=== PATIENT | female | born 1965 | race African-American/Black ===

== ENCOUNTER 2016-10-20 22:00 | Inpatient (IN) | payer OTHER, MEDICARE ==
[~2016-10-20] VITALS: Ht 172.7 cm; Wt 102.0 kg
[~2016-10-20 22:00] MED LIST: GRAL600T; HYDR-3535 PO; INSU100V2 SQ; METF500T PO; NOVOLOGSS; SERO300T PO; SOMA350T PO
[2016-10-20 22:03] VITALS: BP 132/69; PULSE 120; RESP 22; TEMP 99.1; O2SAT 96
--- NOTE | 2016-10-20 22:37 | PD ---
Physical Exam Time Seen by Provider: 22:34 Narrative 51yo F c/o bladder sling came loose. Was seen at [facility] last night and was told she needed surgery and was discharged home. Taking Cipro 500mg and Pyridium. =Vomiting. Tha fever. +chills. + abd pain. Patient seen in triage. VS reviewed. Patient taken to med bed for evaluation. Data Data Last Documented VS Vital Signs Date Time Temp Pulse Resp B/P Pulse Ox O2 Delivery O2 Flow Rate FiO2 10/20/16 22:03 99.1 120 22 132/69 96 Room Air MDM Supervised Visit with BLAYNE: Samantha Rodriges Oct 20, 2016 22:37
[2016-10-20] MEDS ORDERED: SODIUM CHLOR 0.9% 1000 ML INJ 1,000 ML IV ONE ×3 (22:45)
[2016-10-20] MEDS ORDERED: VANCOMYCIN INJ 1,000 MG in SODIUM CHLOR 0.9% 250 ML INJ 250 ML IV ONE (22:45)
[2016-10-20] MEDS ORDERED: PIPERACIL-TAZO 3.375 GM PREMIX 50 ML IV ONE (22:45)
[2016-10-20 23:11] VITALS: BP 127/59; RESP 20; O2SAT 98
--- NOTE | 2016-10-20 23:16 | PD ---
HPI Chief Complaint: Complaint Time Seen by Provider: 22:45 Travel History International Travel<30 days: No Contact w/Intl Traveler<30days: No Traveled to known affect area: No History of Present Illness HPI The patient is a 51 year old female who presents to the [facility] emergency department with a history of having increased pain in the vaginal area and pelvic area associated with blood in her urine, and persistent urinary incontinence for the last month. She went [facility] last night, and they reportedly tried to cut and a catheter however it was unable to be passed due to inflammation. She is followed by Dr. Martin for her urologic care. She reports that she's had a long-standing problem with difficulty urinating and has had 4 surgical procedures done to her bladder. She recently saw Dr. Martin and he scheduled an MRI of the pelvis which was done earlier today. She has not heard about the results. She has been on Cipro and antifungals intermittently for the last 3-4 months. She has self induced vomiting 10 x per day. She reports that she has been dx as bulimic and been doing this for the last 10 years. For the last 3 years, she reports having diarrhea 20-30 minutes after eating. The patient reports that she does have a history of psychiatric problems. She reports that she is on Seroquel. She reports that she has not seen a psychiatrist in a long time. She has an appointment scheduled with Dr. Chadwick this next week. The patient reports having a subjective fever. On review systems, the patient denies having any cough, congestion, neck pain, chest pain, shortness of breath, or neurologic symptoms. Dr. Strong is her PCP. Dr. Chadwick- psychiatry: she is on Seroquel. [facility] Past Medical History Narrative Medical The patient's past surgical history is significant for psychiatric disorder, chronic abdominal pain, chronic recurrent urinary tract infections, acid reflux , chest pain, anemia, reported bulimia, chronic diarrhea. Anemia: Yes Arthritis: No Asthma: No Autoimmune Disease: No Blood Disorders: No Bipolar Disorder: Yes Anxiety: Yes Depression: Yes Cancer: No Cardiovascular Problems: No High Cholesterol: No Chest Pain: Yes COPD: No Coronary Artery Disease: Yes Diabetes: Yes Patient Takes Glucophage: Yes Diminished Hearing: No Endocrine: No Gastrointestinal Disorders: No GERD: Yes Genitourinary: Yes (freq uti) Headaches: Yes ("FROM HITTING MY HEAD" SHE SAYS) Hepatitis: No Hiatal Hernia: No Hypertension: No Immune Disorder: No Musculoskeletal: Yes Neurologic: Yes Psychiatric: Yes Reproductive: No Respiratory: No Integumentary: Yes (CELLULITIS) Immunizations Current: No Schizophrenia: Yes Sleep Apnea: No Thyroid Disease: No Ulcer: No Tetanus Vaccination: > 5 Years Influenza Vaccination: Yes ?: Not Menopausal: Yes : 2 Para: 2 Miscarriage: 0 : 0 Ovarian Cysts: Yes Tubal Ligation: Yes Past Surgical History Narrative Surgical The patient's past surgical history is significant for bladder sling procedure x4. The last two procedures were done by Dr. Martin. The patient has also had back surgery, right foot surgery, right hand surgery. Abdominal Surgery: Yes AICD: No Appendectomy: No Arteriovenous Shunt: No Body Medical Devices: BLADDER SLING Cardiac Surgery: No Section: Yes Cholecystectomy: Yes (2006) Ear Surgery: No Endocrine Surgery: No Eye Surgery: No Genitourinary Surgery: Yes (BLADDER SLING) Gynecologic Surgery: Yes Insulin Pump: No Joint Replacement: No Neurologic Surgery: No Oral Surgery: No Pacemaker: No Thoracic Surgery: No Other Surgery: Yes (back lumbar, bladder tac,r foot and r hand finger surgery) Social History Alcohol Use: No Tobacco Use: No Substance Use: No Allergies-Medications (Allergen,Severity, Reaction): Coded Allergies: Percocet (Verified Allergy, Severe, ITCHING, 10/20/16) *MDRO Multi-Drug Resistant Organism (Verified Adverse Reaction, Unknown, Cleared, 10/21/16) MRSA in wounds 2004, 2005, 2010. Cleared - MRSA screen negative - 03/12/15 & 10/21/16 Reported Meds & Prescriptions Reported Meds & Active Scripts Active Reported Soma (Carisoprodol) 350 Mg Tab 350 Mg PO QID PRN Seroquel (Quetiapine Fumarate) 300 Mg Tab 600 Mg PO DAILY Novolog Inj (Insulin Aspart) 100 Unit/Ml Inj Metformin (Metformin HCl) 500 Mg Tab 500 Mg PO DAILY With a meal Lortab (Hydrocodone-Acetaminophen) 10-325 Mg Tab 1 Tab PO Q6H PRN Humulin R Inj (Insulin Human Regular) 1,000 Unit/10 Ml Vial 1 Units SQ ONCE Gralise (Gabapentin (Once-Daily)) 600 Mg Tab Review of Systems Except as stated in HPI: all other systems reviewed are Neg General / Constitutional: No: Fever Eyes: No: Visual changes HENT: No: Headaches Cardiovascular: No: Chest Pain or Discomfort Respiratory: No: Shortness of Breath Gastrointestinal: Positive: Nausea, Vomiting, Diarrhea, Abdominal Pain, Changes in Bowel Habits Genitourinary: Positive: Urgency, Frequency, Dysuria, Incontinence, Pelvic Pain Musculoskeletal: No: Pain Skin: No Rash Neurologic: Positive: Weakness (generalized weakness), No: Focal Abnormalities , Change in Mentation, Slurred Speech, Sensory Disturbance Psychiatric: No: Depression Endocrine: No: Polydipsia Hematologic/Lymphatic: No: Easy Bruising Physical Exam Narrative General: The patient is a well-developed well-nourished female who arrives uncomfortable appearing on examination, holding her lower abdomen. Head and Neck exam: Head is normocephalic atraumatic. Eyes: EOMI, pupils are equal round and reactive to light. Nose: Midline septum with pink mucous membranes Mouth: Dentition unremarkable. Moist mucus membranes. Posterior oropharynx is not erythematous. No tonsillar hypertrophy. Uvula midline. Airway patent. Neck: No palpable lymphadenopathy. No nuchal rigidity. No thyromegaly. Cardiovascular: Regular rate and rhythm without murmurs, gallops, or rubs. No pulse deficit to the extremities. Lungs: Clear to auscultation bilaterally. No wheezes, rhonchi, or rales. Abdomen: Soft, with tenderness on palpation over the suprapubic area and bilateral lower quadrants of the abdomen, no other tenderness on palpation in the upper quadrants of the abdomen. No guarding, rebound, or rigidity. Normal bowel sounds are audible. No tenderness on palpation specifically over McBurney's point. Negative Holloway sign. Extremities: No clubbing, cyanosis, or edema. 2+ pulses in all 4 extremities. No calf tenderness on palpation. Back: No spinous process tenderness to palpation. No costovertebral angle tenderness to palpation. Neurologic Exam: Grossly nonfocal. Skin Exam: No rash noted. Intact skin that is warm and dry. The patient's external genitalia were examined while the Reza catheter was placed to gravity and there is no evidence of inflammation, erythema, or external tenderness on palpation. Data Data Last Documented VS Vital Signs Date Time Temp Pulse Resp B/P Pulse Ox O2 Delivery O2 Flow Rate FiO2 10/20/16 23:11 20 127/59 98 10/20/16 22:03 99.1 120 Room Air Orders Electrocardiogram (10/20/16 22:45) Complete Blood Count With Diff (10/20/16 22:45) Comprehensive Metabolic Panel (10/20/16 22:45) Prothrombin Time / Inr (Pt) (10/20/16 22:45) Act Partial Throm Time (Ptt) (10/20/16 22:45) Blood Culture (10/20/16 22:45) Lipase (10/20/16 22:45) Urinalysis - C+S If Indicated (10/20/16 22:45) Chest, Single Ap (10/20/16 22:45) Iv Access Insert/Monitor (10/20/16 22:45) Ecg Monitoring (10/20/16 22:45) Oximetry (10/20/16 22:45) Lactic Acid Sepsis Protocol (10/20/16 22:45) Sodium Chlor 0.9% 1000 Ml Inj (Ns 1000 M (10/20/16 22:45) Sodium Chlor 0.9% 1000 Ml Inj (Ns 1000 M (10/20/16 22:45) Sodium Chlor 0.9% 1000 Ml Inj (Ns 1000 M (10/20/16 22:45) Piperacil-Tazo 3.375 Gm Premix (Zosyn 3. (10/20/16 22:45) Vancomycin Inj (Vancomycin Inj) (10/20/16 22:45) Prochlorperazine Inj (Compazine Inj) (10/20/16 23:30) Ketorolac Inj (Toradol Inj) (10/20/16 23:30) Urinary Catheter Insert/Apply (10/21/16 00:36) Admit Order (Ed Use Only) (10/21/16 01:16) Labs Laboratory Tests Test 10/20/16 10/20/16 23:00 23:59 Sodium Level 140 MEQ/L Potassium Level 5.0 MEQ/L Chloride Level 108 MEQ/L Carbon Dioxide Level 23.3 MEQ/L Anion Gap 9 MEQ/L Blood Urea Nitrogen 13 MG/DL Creatinine 1.14 MG/DL Estimat Glomerular Filtration 61 ML/MIN Rate Random Glucose 288 MG/DL Calcium Level 7.5 MG/DL Total Bilirubin 0.3 MG/DL Aspartate Amino Transf 39 U/L (AST/SGOT) Alanine Aminotransferase 25 U/L (ALT/SGPT) Alkaline Phosphatase 96 U/L Total Protein 8.2 GM/DL Albumin 2.9 GM/DL Lipase 315 U/L White Blood Count 7.4 TH/MM3 Red Blood Count 3.70 MIL/MM3 Hemoglobin 11.0 GM/DL Hematocrit 33.2 % Mean Corpuscular Volume 89.8 FL Mean Corpuscular Hemoglobin 29.7 PG Mean Corpuscular Hemoglobin 33.1 % Concent Red Cell Distribution Width 13.2 % Platelet Count 241 TH/MM3 Mean Platelet Volume 8.5 FL Neutrophils (%) (Auto) 48.1 % Lymphocytes (%) (Auto) 44.2 % Monocytes (%) (Auto) 6.0 % Eosinophils (%) (Auto) 1.2 % Basophils (%) (Auto) 0.5 % Neutrophils # (Auto) 3.5 TH/MM3 Lymphocytes # (Auto) 3.3 TH/MM3 Monocytes # (Auto) 0.4 TH/MM3 Eosinophils # (Auto) 0.1 TH/MM3 Basophils # (Auto) 0.0 TH/MM3 CBC Comment DIFF FINAL Differential Comment Prothrombin Time 10.0 SEC Prothromb Time International 0.9 RATIO Ratio Activated Partial 25.5 SEC Thromboplast Time Lactic Acid Level 1.2 mmol/L MDM Medical Decision Making Medical Screen Exam Complete: Yes Emergency Medical Condition: Yes Medical Record Reviewed: Yes Interpretation(s) Last Impressions Renal Ultrasound 10/21/16 0000 Signed Impressions: Service Date/Time: Friday, October 21, 2016 10:36 - CONCLUSION: Unremarkable sonographic appearance of the kidneys Miguel A Brown MD Pelvis CT 10/21/16 0000 Signed Impressions: Service Date/Time: Friday, October 21, 2016 18:31 - CONCLUSION: Reza catheter decompressing the bladder. The bladder appears normally positioned. There is increased density seen in the bladder lumen which raises the possibility of hemorrhage within the lumen. Miguel A Romero MD Chest X-Ray 10/20/16 2245 Signed Impressions: Service Date/Time: Thursday, October 20, 2016 23:28 - CONCLUSION: Bilateral lower lung infiltrates with some consolidation in the right infrahilar region. Sulaiman Tobar MD Differential Diagnosis Vaginitis, versus urethritis, versus urinary tract infection, versus urinary retention, versus psychosomatic symptoms, versus kidney stone Narrative Course During the course of the patients emergency department visit, the patients history, examination, and differential diagnosis were reviewed with the patient. The patient had IV access obtained and blood work sent for analysis. The patient states on a telemetry monitor with oximetry and blood pressure monitoring. The patient was tachycardic on arrival and reported being diagnosed with a urinary tract infection, already on antibiotic, therefore a sepsis workup was started. The patient was initially provided normal saline at 30 mL per KG IV fluid bolus was started. The patient was given Zosyn and Vancomycin for broad-spectrum antibiotic coverage. The patient was given Toradol 15 mg IV for pain, Compazine 5 mg IV for nausea. The patients laboratory studies were reviewed and remarkable for bilateral lung infiltrates with infiltrates worse in the right side. Given the patient's induced vomiting approximately 10 times per day by her report there is a concern for aspiration. Radiology studies were reviewed that were done as an outpatient earlier today and an MRI of the pelvis with and without contrast was ordered by the patient's urologist, Dr. Cano. This showed a marked circumferential irregular bladder wall thickening, a bladder malignancy have this appearance versus a trabeculated neurogenic appearing urinary bladder. The patient had a Reza catheter placed to gravity and the patient was identified as having urinary retention. The patients results were discussed with the patient, including the plan of care. I explained that further testing and/ or monitoring is indicated based on the patients history, examination, and/ or laboratory findings. Therefore, I recommended admission for additional evaluation. The patient expressed understanding and was agreeable with this plan. The patient was admitted to the hospital in stable condition and [facility] Physician Communication Physician Communication The patient's case was discussed with Dr. Flores who did agree to admit the patient for further evaluation and treatment at this time. Diagnosis Primary Impression: Intractable abdominal pain Additional Impression: Bilateral pulmonary infiltrates on chest x-ray Admitting Information Admitting Physician Requests: it Martha Harrell MD Oct 20, 2016 23:16
[2016-10-20] MEDS ORDERED: PROCHLORPERAZINE INJ 10 MG/2 ML VIAL IV PUSH ONE (23:30)
[2016-10-20] MEDS ORDERED: KETOROLAC TROMETHAMINE 30 MG/ML (IVP) VIAL IV PUSH ONE (23:30)
--- NOTE | 2016-10-20 23:40 | RADRPT ---
EXAM DATE/TIME: 10/20/2016 23:28 [facility] COMPARISON: CT ABDOMEN & PELVIS W/O CONTRAST, March 13, 2015, 17:47. CHEST SINGLE AP, March 13, 2015, 3:09 . INDICATIONS : Chest and abdominal pain. MEDICAL HISTORY : Hypertension. SURGICAL HISTORY : None. ENCOUNTER: Initial ACUITY: 1 day PAIN SCORE: 10/10 LOCATION: Bilateral lower chest FINDINGS: There is a partially consolidated infiltrate on the right side in the infrahilar region. Some patchy non-consolidative infiltrates are seen the medial left lower lung. Both hemidiaphragms are well del ineated. The heart is normal size. The upper lungs are clear. CONCLUSION: Bilateral lower lung infiltrates with some consolidation in the right infrahilar region. Sulaiman Tobar MD on October 20, 2016 at 23:37 Board Certified Radiologist. This report was verified electronically.
[2016-10-20 23:44] LABS: ALKALINE PHOSPHATASE 96 U/L (45-117); TOTAL BILIRUBIN ADULT 0.3 MG/DL (0.2-1.0)
[2016-10-20 23:45] LABS: ALT (GPT) 25 U/L (10-53); ANION GAP 9 MEQ/L (5-15); AST (GOT) 39 U/L (15-37); BICARBONATE 23.3 MEQ/L (21.0-32.0); CHLORIDE 108 MEQ/L (98-107); GLOMERULAR FILTRATION RATE 61 ML/MIN (>89); SODIUM (NA) 140 MEQ/L (136-145)
[2016-10-20 23:48] LABS: BLOOD UREA NITROGEN 13 MG/DL (7-18)
[2016-10-21] VITALS (8 sets, daily range): BP systolic 120–176; BP diastolic 60–93; PULSE 88–97; RESP 16–20; TEMP 96.9–99.4; O2SAT 94–99
[2016-10-21 00:45] LABS: AUTOMATED NEUTROPHIL # 3.5 TH/MM3 (1.8-7.7); BASOPHIL % 0.5 % (0.0-2.0); EOSINOPHIL # 0.1 TH/MM3 (0-0.4); EOSINOPHIL % 1.2 % (0.0-4.0); HEMATOCRIT 33.2 % (35.0-46.0); HEMO FLAGS DIFF FINAL; LYMPH % 44.2 % (9.0-44.0); LYMPHOCYTE # 3.3 TH/MM3 (1.0-4.8); MEAN CELL VOLUME 89.8 FL (80.0-100.0); MEAN CORPUSCULAR HEMOGLOBIN 29.7 PG (27.0-34.0); MEAN CORPUSCULAR HGB CONC 33.1 % (32.0-36.0); NEUT % 48.1 % (16.0-70.0); PLATELET COUNT 241 TH/MM3 (150-450); RED CELL DISTRIBUTION WIDTH 13.2 % (11.6-17.2); WHITE BLOOD COUNT 7.4 TH/MM3 (4.0-11.0)
[2016-10-21 00:52] LABS: APTT (PATIENT) 25.5 SEC (24.3-30.1); INTERNATIONAL NORMALIZED RATIO 0.9 RATIO
[2016-10-21] MEDS ORDERED: NALOXONE HCL 0.4 MG/ML AMP IV PRN (01:45)
[2016-10-21 02:28] LABS: BACTERIA, URINE RARE /hpf; BLOOD, URINE MOD (NEG); GLUCOSE,URINE 70 mg/dL (NEG); KETONE, URINE NEG (NEG); MUCUS URINE FEW /lpf (OCC); NITRITE,URINE POS (NEG); RENAL EPITHELIAL CELLS 4 /hpf; SQUAMOUS EPITHELIAL CELL URINE 2 /hpf (0-5); URINE COLOR DARK-BROWN (YELLW/STRAW)
[2016-10-21 02:29] LABS: COMMENT (UR) CATH-CULTURE IND; CULTURE IF INDICATED CATH CULTURE IND
[2016-10-21] MEDS: SODIUM CHLORIDE 0.9% FLUSH 10 ML FLUSH IV FLUSH SCH ×2 (08:22→20:18)
[2016-10-21] MEDS: SODIUM CHLORIDE 0.9% FLUSH 10 ML FLUSH IV FLUSH PRN ×2 (08:23→11:13)
[2016-10-21] MEDS ORDERED: DEXTROSE 50% IN WATER 50 ML VIAL(D50) IV PUSH PRN (10:15)
[2016-10-21] MEDS ORDERED: GLUCAGON 1 MG/ML VIAL OTHER PRN (10:15)
[2016-10-21] MEDS ORDERED: KETOROLAC TROMETHAMINE 30 MG/ML (IVP) VIAL IV PUSH ONE (10:15)
[2016-10-21] MEDS ORDERED: DIATRIZOATE MEGLUM/DIATRIZOATE SOD 9 ML CUP PO ONE (10:53)
--- NOTE | 2016-10-21 11:04 | RADRPT ---
EXAM DATE/TIME: 10/21/2016 10:36 [facility] COMPARISON: No previous studies available for comparison. INDICATIONS : Hydronephrosis. MEDICAL HISTORY : CAD. GERD. SURGICAL HISTORY : Cholecystectomy. Tubal ligation. section. ENCOUNTER: Initial ACUITY: 2 days PAIN SCORE: 10/10 LOCATION: Bilateral flank MEASUREMENTS: RIGHT KIDNEY: 13.0 x 5.2 x 6.7 cm LEFT KIDNEY: 12.3 x 5.4 x 7.0 cm FINDINGS: RIGHT KIDNEY: Renal cortex is normal in thickness and echotexture. No hydronephrosis, stone, or mass. LEFT KIDNEY: Renal cortex is normal in thickness and echotexture. No hydronephrosis, stone, or mass. BLADDER: Decompressed with Reza catheter CONCLUSION: Unremarkable sonographic appearance of the kidneys Miguel A Brown MD on October 21, 2016 at 10:58 Board Certified Radiologist. This report was verified electronically.
[2016-10-21] MEDS: PIPERACIL-TAZO 3.375 GM PREMIX 50 ML IV SCH ×3 (11:33→23:20)
[2016-10-21] MEDS: SODIUM CHLOR 0.9% 1000 ML INJ 1,000 ML IV SCH ×2 (11:34→20:18)
[2016-10-21] MEDS: INSULIN ASPART SUPPLEMENTAL SCALE SQ SCH ×3 (12:59→21:47)
[2016-10-21] MEDS ORDERED: BELLADONNA ALKALOIDS/OPIUM 60 MG SUPP RECTAL ONE (17:00)
--- NOTE | 2016-10-21 17:20 | EKG ---
Date Performed: 10/21/2016 Time Performed: 00:25:20 PTAGE: 51 years EKG: Sinus rhythm LOW QRS VOLTAGE IN PRECORDIAL LEADS BORDERLINE ECG PREVIOUS TRACING 03/12/15 @ 12.04.06 Compared to prior tracing no significant change DOCTOR: Jas Humphrey Interpretating Date/Time 10/21/2016 17:18:53
[2016-10-21] MEDS: KETOROLAC TROMETHAMINE 30 MG/ML (IVP) VIAL IV PUSH PRN ×2 (18:15→23:57)
--- NOTE | 2016-10-21 18:35 | MB ---
cc: MANDI CAMPBELL MD DATE OF CONSULTATION 10/21/2016 REASONS FOR CONSULTATION 1. Urinary retention. 2. Pelvic pain. 3. History of stress urinary incontinence status post mid urethral sling. 4. h/o bladder diverticulectomy HISTORY OF THE PRESENT ILLNESS The patient is a 51-year-old -[place] female with a long-standing history of stress urinary incontinence who has had multiple surgeries in the past on her bladder, most recently with Dr. Cano, presented to the ER last night with pain in her pelvic area extending to her vagina as well as her lower abdomen, blood in her urine and persistent leakage of urine. She went to [facility] on Thursday night for similar symptoms. At that time they attempted to place a catheter but were unable to past due to significant swelling, inflammation her vaginal area. She was then sent home from hospital and due to worsening pain she then came to [place] ER for further evaluation. She has had multiple bladder surgeries in the past, including a Bladder Diverticulectomy by Dr Cuellar and then most recently a MUS by Dr. Cano. However, she continues to leak urine uponstanding and not being able to make it to the bathroom in time. She has been onmultiple courses of antibiotics for the last 3 or 4 months none of which have helped. She also was tried Vesicare and oxybutynin in the past which have not helped with her incontinence as well. She denies fevers, chills or flank pain at this time. She does have history of bulimia and she self-induces vomiting approximately 10 times per day. She denies a history of kidney stones. REVIEW OF SYSTEMS See history of present illness. Otherwise a 14 point review of systems is otherwise negative. PAST MEDICAL HISTORY Significant for: 1. Stress urinary incontinence. 2. History of urinary tract infections. 3. Bulimia. 4. Bladder Diverticulum. PAST SURGICAL HISTORY 1. Bladder sling x2. 2. Cholecystectomy. 3. Bladder Diverticulectomy FAMILY HISTORY She denies urolithiasis or genitourinary malignancies. MEDICATIONS Include: 1. Seroquel 600 milligrams p.o. daily. 2. Soma 350 milligrams p.o. four times daily as needed constipation. 3. Metformin 500 milligrams p.o. daily. 4. Insulin. 5. Gabapentin 600 milligrams tab p.o. three times a day. SOCIAL HISTORY Is positive for caffeine, history of overdose in the past. Denies smoking or alcohol use. PHYSICAL EXAMINATION VITAL SIGNS: Her temperature 96.9, pulse 96, respiratory rate 16, blood pressure 120/60. GENERAL: She is alert and oriented times three. Appears to be in mild distress but is pleasant and cooperative. HEAD AND NECK: Head is normocephalic, atraumatic. Neck is supple. Trachea is midline. No JVD. Eyes, no scleral icterus. Extraocular muscles intact. SKIN: No ulcers or rashes. Mucous membranes pink and moist. LUNGS: Clear to auscultation bilaterally. No wheezes, rales, rhonchi. HEART: Regular rate and rhythm. No murmurs, gallops, rubs. ABDOMEN: Obese, but soft, nontender, nondistended. Positive bowel sounds. GENITOURINARY: No CVA tenderness bilaterally. PELVIC: Examination deferred at this time. EXTREMITIES: Nontender. No clubbing, cyanosis or edema. PSYCHIATRIC: She appears to be anxious and upset. Slightly histrionic. NEUROLOGIC: Cranial nerves II through XII intact. Strength 5/5 in all four extremities. Reza catheter draining clear, yellow urine with what appears to be red, stringy clots. LABORATORY DATA White count 7.4, hemoglobin 11.0, hematocrit 33.2, platelet count 241. Chemistry sodium 140, potassium 5.1, chloride 105, bicarb 23.3, creatinine 1.14, BUN 13, glucose 288. Her urine was positive for nitrates, moderate leukocyte esterase, large moderate blood clotting in nature. Urine culture is currently pending. IMAGING STUDIES Renal ultrasound images reviewed. I agree with the radiologist's report. No renal masses, hydronephrosis or stones. ASSESSMENT The patient is a 51-year-old female with a history of bladder diverticulectomy by Dr. Cuellar, stress urinary incontinence status MUS, subsequently with Dr. Cano admitted with pelvic pain extending to the vagina area as well as urinary retention and blood in the urine. PLAN Recommend continuing Reza catheter and discharge her home with catheter in place. She can then follow up with Dr. Martin for further outpatient evaluation. Recommend continuing antibiotics until urine culture is final. Also recommended that she be referred for AUTOMOTIVE TECHNICIAN evaluation as she has not seen an VEHICLE AND EQUIPMENT CLEANER in her lifetime per the patient as she could also be having significant vaginal issues as well. Thank you for this consultation. Please call with any questions. MD JORGITO Barbosa/LAURIE /1:00 PM /6:06 PM AMY
[2016-10-21] MEDS ORDERED: IOHEXOL 350 MG/ML 10 ML VIAL (for RAD DIAG) IV ONE (18:40)
--- NOTE | 2016-10-21 19:24 | RADRPT ---
EXAM DATE/TIME: 10/21/2016 18:31 [facility] COMPARISON: No previous studies available for comparison. INDICATIONS : Abdominal pain, evaluate bladder sling. IV CONTRAST: 92 cc Omnipaque 350 (iohexol) IV ORAL CONTRAST: Prescribed oral contrast ingested. RADIATION DOSE: 15.39 CTDIvol (mGy) MEDICAL HISTORY : None SURGICAL HISTORY : Cholecystectomy. Tubal ligation. section. Bladder sling surgery. ENCOUNTER: Initial ACUITY: 1 week PAIN SCALE: 3/10 LOCATION: Bilateral lower quadrant TECHNIQUE: Volumetric scanning of the pelvis was performed. Using automated exposure control and adjustment of the mA and/or kV according to patient size, radiation dose was kept as low as reasonabl y achievable to obtain optimal diagnostic quality images. DICOM format image data is available elec tronically for review and comparison. FINDINGS: The patient has a Reza catheter in the bladder. There is increased density within the bladder which may represent some degree of hemorrhage within the bladder. The bladder appears sarah lly positioned. The uterus and ovaries are unremarkable for a standard CT examination. There are scattered colonic d iverticula without inflammatory change seen. Free fluid is not seen in the peritoneal cavity. There is degenerative change in the lower lumbar spine. CONCLUSION: Reza catheter decompressing the bladder. The bladder appears normally positioned. Th ere is increased density seen in the bladder lumen which raises the possibility of hemorrhage within the lumen. Miguel A Romero MD on October 21, 2016 at 19:08 Board Certified Radiologist. This report was verified electronically.
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
[2016-10-22] VITALS: BP 137/67; PULSE 86; RESP 18; TEMP 98.6; O2SAT 98
[2016-10-22 04:00] VITALS: BP 127/72; PULSE 86; RESP 18; TEMP 97.7; O2SAT 97
[2016-10-22] MEDS: SODIUM CHLOR 0.9% 1000 ML INJ 1,000 ML IV SCH ×2 (05:29→11:03)
[2016-10-22] MEDS: PIPERACIL-TAZO 3.375 GM PREMIX 50 ML IV SCH ×2 (05:29→10:13)
[2016-10-22] MEDS: KETOROLAC TROMETHAMINE 30 MG/ML (IVP) VIAL IV PUSH PRN (06:00)
[2016-10-22] MEDS: INSULIN ASPART SUPPLEMENTAL SCALE SQ SCH ×2 (06:01→12:00)
[2016-10-22 07:16] LABS: AUTOMATED NEUTROPHIL # 1.6 TH/MM3 (1.8-7.7); BASOPHIL % 0.6 % (0.0-2.0); EOSINOPHIL # 0.2 TH/MM3 (0-0.4); EOSINOPHIL % 3.2 % (0.0-4.0); LYMPH % 60.1 % (9.0-44.0); LYMPHOCYTE # 3.4 TH/MM3 (1.0-4.8); MEAN CELL VOLUME 89.9 FL (80.0-100.0); MEAN CORPUSCULAR HEMOGLOBIN 28.9 PG (27.0-34.0); MEAN CORPUSCULAR HGB CONC 32.2 % (32.0-36.0); MONO % 7.3 % (0.0-8.0); NEUT % 28.8 % (16.0-70.0); PLATELET COUNT 186 TH/MM3 (150-450); RED BLOOD COUNT 3.34 MIL/MM3 (4.00-5.30); RED CELL DISTRIBUTION WIDTH 13.7 % (11.6-17.2); WHITE BLOOD COUNT 5.6 TH/MM3 (4.0-11.0)
[2016-10-22 07:23] LABS: HEMO FLAGS AUTO DIFF
[2016-10-22 07:49] LABS: BICARBONATE 27.6 MEQ/L (21.0-32.0); POTASSIUM 3.8 MEQ/L (3.5-5.1)
[2016-10-22 08:15] LABS: PLATELET ESTIMATE SMEAR NORMAL (NORMAL); PLATELET MORPHOLOGY NORMAL (NORMAL); SCAN/DIFF AUTO DIFF CONFIRMED
[2016-10-22 08:46] VITALS: BP 140/85; PULSE 84; RESP 16; TEMP 97.4; O2SAT 98
[2016-10-22] MEDS ORDERED: SENNOSIDES 8.6 MG TAB PO SCH (09:45)
[2016-10-22] MEDS ORDERED: GABAPENTIN 300 MG CAP PO SCH (09:45)
[2016-10-22] MEDS ORDERED: ACETAMINOPHEN/HYDROcodone 325 MG/5 MG TAB PO PRN (09:45)
[2016-10-22] MEDS ORDERED: DOCUSATE SODIUM 100 MG CAP PO SCH (09:45)
[2016-10-22] MEDS ORDERED: QUEtiapine FUMARATE 300 MG TAB PO SCH ×2 (09:45→21:00)
[2016-10-22] MEDS ORDERED: ACETAMINOPHEN/HYDROcodone 325 MG/10 MG TAB PO PRN (09:45)
[2016-10-22] MEDS ORDERED: MORPHINE SULFATE 4 MG/ML INJ IV PUSH PRN (09:45)
[2016-10-22] MEDS ORDERED: CIPR-9 PO ×2 (09:49→11:02)
[2016-10-22] MEDS ORDERED: PHEN0.4T PO (09:51)
--- NOTE | 2016-10-22 11:04 | HHI.DCPOC ---
Discharge Care Plan Diagnosis: (1) Mixed incontinence (2) Psychogenic vomiting (3) UTI (urinary tract infection) (4) Chronic pain (5) Diabetes mellitus type 2 (6) Intractable abdominal pain (7) Urinary retention Goals to Promote Your Health * To prevent worsening of your condition and complications * To maintain your health at the optimal level Directions to Meet Your Goals Take your medications as prescribed Follow your dietary instruction Follow activity as directed Keep your appointments as scheduled Take your immunizations and boosters as scheduled If your symptoms worsen call your PCP, if no PCP go to Urgent Care Center or Emergency Room Smoking is Dangerous to Your Health. Avoid second hand smoke Call the 24-hour hour crisis hotline for domestic abuse at Scottie Gutiérrez DO Oct 22, 2016 11:04
--- NOTE | 2016-10-22 11:15 | HHI.PR ---
Subjective Remarks The patient was complaining of significant pain. She said that she was getting the same pills she takes at home. She said that her urologist called her and wanted her to come in for surgery. The patient wanted to go home today so she could go to the surgery Center tomorrow morning for surgical repair. Discussed with nursing. Objective Vitals Vital Signs Date Time Temp Pulse Resp B/P Pulse Ox O2 Delivery O2 Flow Rate FiO2 10/22/16 08:46 97.4 84 16 140/85 98 10/22/16 04:00 97.7 86 18 127/72 97 10/22/16 00:00 98.6 86 18 137/67 98 10/21/16 20:32 88 10/21/16 20:15 97.3 95 20 176/80 99 10/21/16 16:45 99.4 93 16 154/93 96 10/21/16 12:00 98.4 97 16 162/92 95 I/O 10/21/16 10/21/16 10/21/16 10/22/16 10/22/16 10/22/16 07:00 15:00 23:00 07:00 15:00 23:00 Intake Total 740 ml 1280 ml 425 ml Output Total 1100 ml 1600 ml 200 ml Balance -360 ml -320 ml 225 ml Intake Oral 740 ml 480 ml IV Total 800 ml 425 ml Output Urine Total 1100 ml 1600 ml 200 ml Result Diagram: 10/22/16 0626 10/22/16 0626 Imaging Last Impressions Renal Ultrasound 10/21/16 0000 Signed Impressions: Service Date/Time: Friday, October 21, 2016 10:36 - CONCLUSION: Unremarkable sonographic appearance of the kidneys Miguel A Brown MD Pelvis CT 10/21/16 0000 Signed Impressions: Service Date/Time: Friday, October 21, 2016 18:31 - CONCLUSION: Reza catheter decompressing the bladder. The bladder appears normally positioned. There is increased density seen in the bladder lumen which raises the possibility of hemorrhage within the lumen. Miguel A Romero MD Chest X-Ray 10/20/16 2245 Signed Impressions: Service Date/Time: Thursday, October 20, 2016 23:28 - CONCLUSION: Bilateral lower lung infiltrates with some consolidation in the right infrahilar region. Sulaiman Tobar MD Objective Remarks GENERAL: This is a well-nourished, well-developed patient, in no apparent distress. SKIN: No rashes, ecchymoses or lesions. Cool and dry. HEAD: Atraumatic. Normocephalic. No temporal or scalp tenderness. EYES: Pupils equal round and reactive. Extraocular motions intact. No scleral icterus. No injection or drainage. ENT: Nose without bleeding, purulent drainage or septal hematoma. Throat without erythema, tonsillar hypertrophy or exudate. Uvula midline. Airway patent. NECK: Trachea midline. No JVD or lymphadenopathy. Supple, nontender, no meningeal signs. CARDIOVASCULAR: Regular rate and rhythm without murmurs, gallops, or rubs. RESPIRATORY: Clear to auscultation. Breath sounds equal bilaterally. No wheezes , rales, or rhonchi. GASTROINTESTINAL: Abdomen soft, nondistended. Tender to palpation suprapubically. No hepato-splenomegaly, or palpable masses. No guarding. MUSCULOSKELETAL: Extremities without clubbing, cyanosis, or edema. No joint tenderness, effusion, or edema noted. NEUROLOGICAL: Awake and alert. Cranial nerves II through XII intact. Motor and sensory grossly within normal limits. Five out of 5 muscle strength in all muscle groups. Normal speech. PSYCH: Anxious. Medications and IVs Current Medications Medications (Trade) Dose Ordered Sig/Raiza Route Start Time Stop Time Status Last Admin (NS Flush) 2 ml UNSCH PRN IV FLUSH 10/21/16 01:45 10/21/16 11:13 (NS Flush) 2 ml BID IV FLUSH 10/21/16 09:00 10/21/16 20:18 Naloxone HCl 0.4 mg 0.4 mg UNSCH PRN IV 10/21/16 01:45 (Zosyn 3.375 Gm Premix) 50 ml @ 100 mls/hr Q6H IV 10/21/16 11:00 10/22/16 10:13 (D50w (Vial) Inj) 25 ml UNSCH PRN IV PUSH 10/21/16 10:15 Glucagon 1 mg 1 mg UNSCH PRN OTHER 10/21/16 10:15 (NS 1000 ml Inj) 1,000 ml @ 85 mls/hr [id number] IV 10/21/16 10:15 10/22/16 11:03 (Neurontin) 600 mg DAILY PO 10/22/16 09:45 10/22/16 10:12 (Zoe 5-325 Mg) 1 tab Q4H PRN PO 10/22/16 09:45 (Zoe 10-325 Mg) 1 tab Q4H PRN PO 10/22/16 09:45 10/22/16 10:12 (Morphine Inj) 2 mg Q4HR PRN IV PUSH 10/22/16 09:45 10/22/16 10:59 (Colace) 100 mg BID PO 10/22/16 09:45 (Senokot) 17.2 mg DAILY PO 10/22/16 09:45 (SEROquel) 600 mg HS PO 10/22/16 21:00 A/P Assessment and Plan UTI Complicated. Culture with no growth. - Continue Zosyn. D/c on Cipro. - follow up with urology. - follow culture. Obstructive urethritis Reza placed. Urology consult appreciated. The pt's urologist, Dr. Tavarez, called the pt AM 10/22 and told the pt to report to the surgery center for an outpt procedure. - continue Reza upon discharge. - pain control. - Continue antibiotics. - follow up with urology 10/22. The pt will make herself NPO at midnight. Diabetes mellitus On metformin as an outpt. - NovoLog sliding scale. Chronic pain/ Bipolar disorder/ Bulimia The pt says she is trying to schedule an appointment with psychiatry. - psych follow-up. DVT prophylaxis. SCDs. Discharge Planning D/c home later today so pt may pursue outpt surgical intervention with urology Scottie Gutiérrez DO Oct 22, 2016 11:15
[2016-10-22 12:00] VITALS: BP 133/76; PULSE 81; RESP 16; TEMP 97; O2SAT 98
[2016-10-22] MEDS ORDERED: ONDANSETRON HCL 4 MG/2 ML VIAL IV PUSH ONE (13:00)
--- NOTE | 2016-10-22 13:15 | HHI.FF ---
Face to Face Verification Diagnosis: (1) Mixed incontinence (2) Chronic pain (3) Intractable abdominal pain (4) UTI (urinary tract infection) (5) Urinary retention Home Health Nursing Order: Medical education Signs/symptoms of disease process Medication education-adverse effect Nursing assessment with vital signs Reza catheter maintenance I have seen patient Dotty Griffin on 10/22/16. My clinical findings support the need for the requested home health care services because: Ltd mobility - disease progression Limited ability to care for self Need for psychosocial assistance I certify that my clinical findings support that this patient is homebound because: Unsafe to leave home unassisted Need for psychosocial assistance Scottie Gtuiérrez DO Oct 22, 2016 13:15
[2016-10-22 16:37] VITALS: BP 133/79; PULSE 85; RESP 16; TEMP 97.8; O2SAT 97
== END 2016-10-22 16:45 | disposition home or self-care (01) | DRG 690 ==
LOC: NEPE 22:00 → NEDA 10-21 01:19 → HOCA 10-21 05:37
PROVIDERS: ADMIT Hospitalist; ATTEND Hospitalist
DX: N39.0 Urinary tract infection, site not specified (principal); F50.2 Bulimia nervosa; G89.29 Other chronic pain; R10.9 Unspecified abdominal pain; K21.9 Gastro-esophageal reflux disease without esophagitis; I25.10 Atherosclerotic heart disease of native coronary artery without angina pectoris; E11.9 Type 2 diabetes mellitus without complications; R33.9 Retention of urine, unspecified; F20.9 Schizophrenia, unspecified; F31.9 Bipolar disorder, unspecified; E78.5 Hyperlipidemia, unspecified; I10 Essential (primary) hypertension; F41.9 Anxiety disorder, unspecified; G89.21 Chronic pain due to trauma; M54.9 Dorsalgia, unspecified; R10.2 Pelvic and perineal pain; R32 Unspecified urinary incontinence; R31.9 Hematuria, unspecified; Z87.440 Personal history of urinary (tract) infections; Z79.84 Long term (current) use of oral hypoglycemic drugs; Z79.4 Long term (current) use of insulin; Z86.14 Personal history of Methicillin resistant Staphylococcus aureus infection
CPT/HCPCS: 71010; 72193; 76775; 80048; 80053; 81001; 82948; 83605; 83690; 85025; 85610; 85730; 87040; 87086; 87641; 93005; 96365; 96366; 96375; J0780; J1815; J1885; J2270; J2405; J2543; J3370; J7030; J7050; Q9963; Q9967

== ENCOUNTER → 2017-05-15 | Day surgery (SDC) | payer OTHER ==
[~2017-05-15] VITALS: Ht 172.7 cm; Wt 101.7 kg
[~2017-05-15] MED LIST changes: +CHLORHEXIDINE GLUCONATE 2 % 1 PACK (2 CLOTHS) TOPICAL PRN; -HYDR-3535 PO; +HYDR-3583 PO; +HYDROmorphone HCL PF 2 MG/ML VIAL IV PUSH PRN; +HYDROmorphone HCL PF 2 MG/ML VIAL ONE; +IBUPROFEN 600 MG TAB PO PRN; +INSULIN HUMAN REGULAR 1,000 UNITS/10 ML VIAL ONE; +INSULIN HUMAN REGULAR 1,000 UNITS/10 ML VIAL SQ PRN; +LACTATED RINGER'S 1000 ML IV PRN; +LIDOCAINE 0.5%/EPINEPHrine 1:200,000 SOLN 50 ML VIAL ONE; +LYRI75CA PO; +METOPROLOL TARTRATE 25 MG TAB PO PRN; +ONDANSETRON HCL 4 MG/2 ML VIAL IV PUSH PRN; +POVIDONE IODINE 5% (ANTISEPSIS KIT) 4 APPLICATIONS EACH NARE PRN; +PROPOFOL 200 MG/20 ML AMP IV ONE; +PROPOFOL 500 MG/50 ML INJ 50 ML ONE; +SODIUM CHLORID 0.9% 500 ML IV PRN; +ceFAZolin 1,000 MG/NS 100 ML IV SCH
[2017-05-15 10:21] LABS: AUTOMATED NEUTROPHIL # 2.8 TH/MM3 (1.8-7.7); BASOPHIL % 0.6 % (0.0-2.0); EOSINOPHIL # 0.1 TH/MM3 (0-0.4); EOSINOPHIL % 1.7 % (0.0-4.0); HEMATOCRIT 34.5 % (35.0-46.0); HEMOGLOBIN 11.1 GM/DL (11.6-15.3); LYMPH % 49.1 % (9.0-44.0); LYMPHOCYTE # 3.3 TH/MM3 (1.0-4.8); MEAN CORPUSCULAR HEMOGLOBIN 29.3 PG (27.0-34.0); MEAN CORPUSCULAR HGB CONC 32.2 % (32.0-36.0); MEAN PLATELET VOLUME 8.7 FL (7.0-11.0); MONO % 6.7 % (0.0-8.0); MONOCYTE # 0.5 TH/MM3 (0-0.9); NEUT % 41.9 % (16.0-70.0); PLATELET COUNT 200 TH/MM3 (150-450); RED BLOOD COUNT 3.79 MIL/MM3 (4.00-5.30); RED CELL DISTRIBUTION WIDTH 14.1 % (11.6-17.2); WHITE BLOOD COUNT 6.8 TH/MM3 (4.0-11.0)
--- NOTE | 2017-05-15 12:32 | PD.OP ---
Operative Report Date of Surgery: May 15, 2017 Preoperative Diagnosis: Urinary incontinence; both urge and stress Postoperative Diagnosis: Same Procedure: InterStim therapy test stimulation procedure Anesthesia: MAC with local Surgeon: Salazar Hilario Assistant Toddler Teacher(s): None Resident Surgeon: None Operation and Findings: 51-year-old female with history of both stress and urge urinary incontinence. She's had 2 sling procedures in the past and has failed anticholinergic therapy. Patient made the decision to attempt InterStim therapy trial. Risk and benefits were discussed. She is going to proceed. Patient was identified by myself as Dotty Griffin and placed in the prone position. Pillows were placed under the lower abdomen to flatten the sacrum and under the shins to allow the toes to dangle freely. A ground pad was placed on the bottom of the patient's foot and the long test stimulator cable was connected to the ground pad into the external test stimulator. Patient was prepped and draped in usual sterile fashion using prepped solution. The C-arm was moved into the AP position to provide fluoroscopic mapping of the sacral region which included marking out midline of the sacrum, SI joints, sciatic notches, medial foraminal borders and sacral foramina. Local injection with 0.5% Marcaine was administered and a foramen needle was placed at a 60 angle into the S3 foramen. The C-arm was then put into a lateral position to check Of the needle into identify placement within the proper foramen. Proper S3 needle position was confirmed by patient's sensation of stimulation, direct observation of the lifting of the perineum and observation of plantar flexion of the great toe utilizing the external test stimulator and the J-hook on the patient cable. The foramen needle stylette was removed and a percutaneous lead was inserted at proper depth using a 3.5-lead marker. The placement was tested and confirmed by connecting the patient cable J-hook to the top of the drive tester and by fluoroscopic imaging. The needle was taken out over the lead. The above procedure was performed again on the opposite side and all appropriate responses were again verified. The leads were connected to the short test stimulator cables and ground pads. The patient was cleaned off and the entire region was covered with a Tegaderm. EBL was minimal. Using the external test stimulator, the patient was programmed to optimum sensation via the lead and given instructions on utilizing the external test stimulator prior to discharge. A urinary diary will be kept until return appointment to the office next Thursday to discuss results of the test stimulation. The following CPT codes are to be utilized: 34276 C1897 [id number] Salazar Hilario DO May 15, 2017 12:32
[2017-05-15 13:45] VITALS: BP 129/93; PULSE 108; RESP 18; TEMP 98; O2SAT 100
== END | disposition home or self-care (01) ==
LOC: HSDC 09:11
PROVIDERS: ATTEND Urology
DX: N39.46 Mixed incontinence (principal); E11.9 Type 2 diabetes mellitus without complications; Z79.4 Long term (current) use of insulin
CPT/HCPCS: 00400; 64561; 76000; 85025; C1778; J0690; J1170; J1815; J3010; J7120

== ENCOUNTER → 2017-05-29 | Day surgery (SDC) | payer OTHER ==
[~2017-05-29] VITALS: Ht 172.7 cm; Wt 102.3 kg
[~2017-05-29] MED LIST changes: +BUPIVACAINE HCL PF 0.5% 30 ML VIAL ONE; +GABA600T PO; -GRAL600T; -HYDROmorphone HCL PF 2 MG/ML VIAL IV PUSH PRN; -HYDROmorphone HCL PF 2 MG/ML VIAL ONE; -IBUPROFEN 600 MG TAB PO PRN; -INSULIN HUMAN REGULAR 1,000 UNITS/10 ML VIAL ONE; -METF500T PO; +NOVOLOGP2 SQ; -NOVOLOGSS; -ONDANSETRON HCL 4 MG/2 ML VIAL IV PUSH PRN; -PROPOFOL 200 MG/20 ML AMP IV ONE; -PROPOFOL 500 MG/50 ML INJ 50 ML ONE
[2017-05-29 10:31] LABS: AUTOMATED NEUTROPHIL # 2.1 TH/MM3 (1.8-7.7); BASOPHIL % 0.5 % (0.0-2.0); EOSINOPHIL # 0.1 TH/MM3 (0-0.4); EOSINOPHIL % 1.4 % (0.0-4.0); HEMATOCRIT 35.1 % (35.0-46.0); HEMOGLOBIN 11.7 GM/DL (11.6-15.3); LYMPH % 53.6 % (9.0-44.0); LYMPHOCYTE # 3.1 TH/MM3 (1.0-4.8); MEAN CELL VOLUME 90.5 FL (80.0-100.0); MEAN CORPUSCULAR HEMOGLOBIN 30.2 PG (27.0-34.0); MEAN CORPUSCULAR HGB CONC 33.3 % (32.0-36.0); MEAN PLATELET VOLUME 8.1 FL (7.0-11.0); MONO % 8.1 % (0.0-8.0); MONOCYTE # 0.5 TH/MM3 (0-0.9); NEUT % 36.4 % (16.0-70.0); PLATELET COUNT 195 TH/MM3 (150-450); RED BLOOD COUNT 3.87 MIL/MM3 (4.00-5.30); RED CELL DISTRIBUTION WIDTH 13.9 % (11.6-17.2); WHITE BLOOD COUNT 5.8 TH/MM3 (4.0-11.0)
[2017-05-29 14:00] VITALS: BP 121/68; PULSE 97; RESP 14; TEMP 99; O2SAT 97
== END | disposition home or self-care (01) ==
LOC: HSDC 09:10
PROVIDERS: ATTEND Urology
DX: N39.46 Mixed incontinence (principal); Z01.818 Encounter for other preprocedural examination; Z53.09 Procedure and treatment not carried out because of other contraindication
CPT/HCPCS: 85025; G0463; J1815; J7120; 99211

== ENCOUNTER → 2017-06-11 | Day surgery (SDC) | payer OTHER, MEDICAID ==
[~2017-06-11] VITALS: Ht 172.7 cm; Wt 104.5 kg
[~2017-06-11] MED LIST changes: -BUPIVACAINE HCL PF 0.5% 30 ML VIAL ONE; +DO NOT ADM ANY ANTICOAGULANT DRUGS PRN; +KETAMINE HCL 500 MG/5 ML VIAL ONE; +LANTUS2P SQ; -LIDOCAINE 0.5%/EPINEPHrine 1:200,000 SOLN 50 ML VIAL ONE; +LIDOCAINE 1%/EPINEPHrine 1:100,000 SOLN 30 ML VIAL ONE; +LIDOCAINE 1%/EPINEPHrine 1:100,000 SOLN 50 ML VIAL ONE; +LIDOCAINE HCL 1% PF 5 ML SYRINGE OTHER ONE; +MIDAZOLAM HCL 2 MG/2 ML VIAL ONE; +MORPHINE SULFATE 2 MG/ML INJ IV PRN; +MORPHINE SULFATE 4 MG/ML INJ ONE; -NOVOLOGP2 SQ; +ONDANSETRON HCL 4 MG/2 ML VIAL IV PUSH PRN; +PROMETHAZINE INJ 25 MG/ML VIAL ONE; +PROPOFOL 500 MG/50 ML INJ 50 ML ONE; +ceFAZolin INJ 1,000 MG VIAL IV ONE; +oxyCODONE/ACETAMINOPHEN 5 MG/325 MG TAB PO PRN; +oxyCODONE/ACETAMINOPHEN 7.5 MG/325 MG TAB PO PRN
--- NOTE | 2017-06-11 11:43 | PD.OP ---
Operative Report Date of Surgery: Jun 11, 2017 Preoperative Diagnosis: Urinary incontinence Postoperative Diagnosis: Same Procedure: Full InterStim implant Anesthesia: MAC Surgeon: Salazar Hilario Forming Tube Selector(s): None Resident Surgeon: None Operation and Findings: 52-year-old female with history of mixed incontinence here today to undergo full InterStim implant. Risk and benefits discuss preop and she is willing to proceed. She underwent the temporary lead placement in the past with good success. Patient was brought to the operating room and placed in the prone position on the operating table. MAC anesthesia was administered. Pillows were placed under lower abdomen flat and the sacrum and under the shins to allow the toes to dangle freely. It was placed on the bottom of the patient's foot and the long test stimulator cable was connected to the ground pad and the external test stimulator. Patient was prepped and draped in sterile fashion C- arm was moved in the AP position to provide fluoroscopic guidance to the sacrum. The medial edges of the foramen were identified and marked. C-arm was then moved into the lateral position to identify the S3 foramen. Once the needle entry point was determined, local injection of 1% lidocaine was administered. 3.5 foramen needle was placed in the superior, medial aspect of the S3 foramen and appropriate needle was visualized using fluoroscopy. Prior breast 3 needle location was also confirmed by direct observation of the lifting of the perineum and plantar flexion of the great toe utilizing the mini look patient cable and the external test stimulator. The foramen needle stylette was removed and a directional guide was placed through the needle using markers on the guide to assure proper depth. The foramen needle was removed by sliding over the directional guide. Small incision was made peripherally to the directional guide through the skin. Lead introducer with dilator was placed over the directional guide foramen. The dilator was removed along the directional guide. Using fluoroscopy, the tined lead was placed through the introducer until electrodes 2 and 3 straddled the anterior surface of the sacrum. All 4 electrodes were tested observing dee and plantar flexion of the great toe utilizing the mini hole cable and the external test stimulator. After satisfactory lead positioning was confirmed, the introducer was retracted over the lead under continuous fluoroscopy, deploying the tines and presacral tissue. Retesting of all 4 electrodes confirming appropriate responses was completed. The internal neurostimulator pocket was identified below the iliac crest and lateral to the sacrum. Local anesthesia was administered and the incision was made and the subcutaneous tissues tissue. Blunt dissection was used to create a pocket with hemostasis achieved. Tunneling tool with chief was placed from the lead exit site 70 can easily to the incised pocket site. The tunneling tool was removed and the lead was fed through the sheath, exiting the pocket site. The sheath was removed. The lead was clear and dry. Lead was inserted into the header of the InterStim neurostimulator into the blue tip was visualized in the distal window. The single setscrew was tightened using the torque wrench until audible click was heard. The the neurostimulator was placed into the pocket with the etched identification side placed upwards and any excessive lead was placed around the nerve stimulator. The clinical program to telemetry had, covered in a sterile sleeve, was placed over the implanted neurostimulator sure properly connection and at the parameters were within normal range. Impedances were confirmed to be within normal limits, greater than 50 and less than 4000. The wound was irrigated with antibiotic solution and then closed with a 2-0 Vicryl suture and then a running subcuticular 4-0 Monocryl suture. Counts were correct his strips and gauze were placed over the incision covered the transplant dressing. Blood loss was minimal the patient was transiently room in stable condition. Using the clinical application programmer analyst, the INS was programmed. Patient provided utilization instructions for the patient application programmer analyst prior to discharge. CPT codes for this procedure include 01381, 16391, 74047-16, 72975, 02960. Salazar Hilario DO Jun 11, 2017 11:43
[2017-06-11 13:30] VITALS: BP 133/80; PULSE 109; RESP 18; TEMP 98.4; O2SAT 99
--- NOTE | 2017-06-11 15:04 | RADRPT ---
EXAM DATE/TIME: 06/11/2017 10:24 [facility] COMPARISON: No previous studies available for comparison. INDICATIONS : Interstim placement. MEDICAL HISTORY : None. SURGICAL HISTORY : None. ENCOUNTER: Initial ACUITY: 1 day PAIN SCORE: Non-responsive. LOCATION: Right sacrum FINDINGS: Two-view examination of the sacrum demonstrates a radiopaque interstim device placed in the left late ral pelvis. CONCLUSION: Interstim device placed in the left pelvis as described. Ismael Meadows MD on June 11, 2017 at 15:01 Board Certified Radiologist. This report was verified electronically.
== END | disposition home or self-care (01) ==
LOC: HSDC 06:28
PROVIDERS: ATTEND Urology
DX: R32 Unspecified urinary incontinence (principal); E11.9 Type 2 diabetes mellitus without complications; Z79.4 Long term (current) use of insulin
CPT/HCPCS: 00300; 00630; 64581; 64590; 72220; 76000; 82948; C1713; C1767; C1778; C1787; J0690; J1815; J2250; J2270; J2550; J7120